=== PATIENT | female | born 1935 | race Caucasian/White ===

== ENCOUNTER 2019-02-08 16:04 | Emergency (ER) | payer MEDICARE, BC ==
[~2019-02-08] VITALS: Ht 167.6 cm; Wt 86.0 kg
[~2019-02-08 16:04] MED LIST: CLONIDINE0.1 MG PO; DIOVAN160 MG OR; DIOVAN320 MG OR; FUROSEMIDE20 MG PO; KLOR-CON20 MEQ OR; LIBRAX1 CAP OR; METOPROL TAR100 MG OR; METOPROLOL25 MG OR; NEXIUM40 M1 OR; NORVASC10 MG OR; POT CHLORIDE20 ME3 OR; PRAVASTATIN80 MG OR; PRILOSEC20 MG OR; SYNTHROID50 MCG OR; TEKTURNA300 MG OR
[2019-02-08 16:27] LABS: GFR 60 ML/MIN (>=60 (CALC)); GFR FOR AFR.AMER. > 60 ML/MIN (>=60 (CALC))
[2019-02-08 16:28] LABS: HEMATOCRIT 40.6 % (37.0-47.0); HEMOGLOBIN 13.3 g/dl (12.0-16.0); IMMATURE GRANULOCYTES 0.2 % (0.0-5.0); MEAN CELL VOLUME 90.6 fL CALC (80.0-100.0); MEAN CORPUSCULAR HGB 29.7 pG CALC (26.0-32.0); MEAN CORPUSCULAR HGB CONC 32.8 g/L CALC (32.0-36.0); NEUT# 2.52 thou/uL (2.00-7.15); RED BLOOD COUNT 4.48 mill/uL (4.20-5.60); RED CELL DISTRI WIDTH 12.9 % (11.5-15.5)
[2019-02-08 16:42] LABS: ALBUMIN 4.5 g/dL (3.2-5.0); ALKALINE PHOSPHATASE 50 u/l (38-126); ANION GAP 15 (6-22 (CALC)); BILIRUBIN, TOTAL 1.4 mg/dL (0.0-1.4); BUN 16 mg/dL (8-23); BUN/CREATININE RATIO 20 (12-20 (CALC)); CARBON DIOXIDE 24 mmol/l (22-30); CHLORIDE 103 mmol/l (95-108); CREATININE 0.8 mg/dL (0.5-1.0); GFR > 60 ML/MIN (>=60 (CALC)); GFR FOR AFR.AMER. > 60 ML/MIN (>=60 (CALC)); LIPASE 115 u/l (23-300); POTASSIUM 4.3 mmol/l (3.5-5.1); SGOT/AST 28 u/l (9-36); SODIUM 138 mmol/l (137-146); TOTAL PROTEIN 7.1 g/dL (6.3-8.2)
[2019-02-08 16:48] LABS: INTERNATIONAL NORMALIZED RATIO 1.1 RATIO (0.7-1.3); PROTHROMBIN TIME 11.9 SECONDS (9.0-12.5)
[2019-02-08 17:25] LABS: URINE BILIRUBIN - DIPSTICK NEGATIVE (NEGATIVE); URINE BLOOD DIPSTICK NEGATIVE (NEGATIVE); URINE COLOR YELLOW; URINE GLUCOSE - DIPSTICK NEGATIVE (NEGATIVE); URINE KETONE NEGATIVE (NEGATIVE); URINE LEUK ESTERASE SMALL (NEGATIVE); URINE NITRITE - DIPSTICK NEGATIVE (Negative); URINE PROTEIN - DIPSTICK NEGATIVE (NEG-TRACE); URINE UROBILINOGEN - DIPSTICK 0.2 E.U./dL (0.2)
[2019-02-08 17:44] LABS: URINE RBC 0-2 RBC/hpf (0-5); URINE SQUAMOUS EPITHELIAL CELL FEW EPI/hpf (0-FEW)
[2019-02-08] MEDS ORDERED: COUMADIN5 MG PO (18:12)
[2019-02-08] MEDS ORDERED: PRAVASTATIN80 MG PO (18:12)
[2019-02-08] MEDS ORDERED: LABETALOL200 MG PO (18:12)
[2019-02-08] MEDS ORDERED: SPIRONOLACTONE25 MG PO (18:13)
[2019-02-08] MEDS ORDERED: TRAMADOL HYDROC50 MG PO (18:17)
[2019-02-08] MEDS ORDERED: MUPIROCIN21 TOP (18:25)
[2019-02-08 18:29] VITALS: BP 140/81
== END 2019-02-08 19:15 | disposition home or self-care (01) ==
LOC: ED 16:04
PROVIDERS: Family Medicine
DX: S00.12XA Contusion of left eyelid and periocular area, initial encounter (principal); S00.11XA Contusion of right eyelid and periocular area, initial encounter; S00.33XA Contusion of nose, initial encounter; S80.212A Abrasion, left knee, initial encounter; S20.212A Contusion of left front wall of thorax, initial encounter; M54.6 Pain in thoracic spine; M54.5 Low back pain; I10 Essential (primary) hypertension; W01.0XXA Fall on same level from slipping, tripping and stumbling without subsequent striking against object, initial encounter; Y92.009 Unspecified place in unspecified non-institutional (private) residence as the place of occurrence of the external cause; Z86.718 Personal history of other venous thrombosis and embolism; Z79.01 Long term (current) use of anticoagulants; R06.02 Shortness of breath
CPT/HCPCS: Q9967

== ENCOUNTER 2019-10-11 00:55 | Emergency (ER) | payer MEDICARE, BC ==
[~2019-10-11] VITALS: Ht 167.6 cm; Wt 50.0 kg
[~2019-10-11 00:55] MED LIST changes: +COUMADIN5 MG PO; +LABETALOL200 MG PO; +MUPIROCIN21 TOP; +PRAVASTATIN80 MG PO; +SPIRONOLACTONE25 MG PO; +TRAMADOL HYDROC50 MG PO
[2019-10-11 01:25] LABS: HEMOGLOBIN 12.8 g/dl (12.0-16.0); IMMATURE GRANULOCYTES 0.3 % (0.0-5.0); MEAN CELL VOLUME 91.3 fL CALC (80.0-100.0); MEAN CORPUSCULAR HGB 30.8 pG CALC (26.0-32.0); MEAN CORPUSCULAR HGB CONC 33.7 g/L CALC (32.0-36.0); NEUT# 4.36 thou/uL (2.00-7.15); RED BLOOD COUNT 4.16 mill/uL (4.20-5.60); RED CELL DISTRI WIDTH 12.7 % (11.5-15.5)
[2019-10-11 01:36] LABS: ALBUMIN 4.2 g/dL (3.2-5.0); ALKALINE PHOSPHATASE 58 u/l (38-126); ANION GAP 14 (6-22 (CALC)); BUN 21 mg/dL (8-23); BUN/CREATININE RATIO 29 (12-20 (CALC)); CARBON DIOXIDE 26 mmol/l (22-30); CHLORIDE 99 mmol/l (95-108); CREATININE 0.7 mg/dL (0.5-1.0); GFR > 60 ML/MIN (>=60 (CALC)); GFR FOR AFR.AMER. > 60 ML/MIN (>=60 (CALC)); POTASSIUM 4.3 mmol/l (3.5-5.1); SGOT/AST 25 u/l (9-36); SODIUM 135 mmol/l (137-146)
[2019-10-11 01:41] LABS: BILIRUBIN, TOTAL 0.8 mg/dL (0.0-1.4)
[2019-10-11 01:47] LABS: MYOGLOBIN 102 ng/mL (0 - 62)
[2019-10-11 02:19] LABS: URINE BILIRUBIN - DIPSTICK NEGATIVE (NEGATIVE); URINE BLOOD DIPSTICK NEGATIVE (NEGATIVE); URINE COLOR YELLOW; URINE GLUCOSE - DIPSTICK NEGATIVE (NEGATIVE); URINE KETONE NEGATIVE (NEGATIVE); URINE NITRITE - DIPSTICK NEGATIVE (Negative); URINE PH 6.5 (4.5-8.0); URINE PROTEIN - DIPSTICK NEGATIVE (NEG-TRACE); URINE SPECIFIC GRAVITY <=1.005; URINE UROBILINOGEN - DIPSTICK 0.2 E.U./dL (0.2)
[2019-10-11 02:20] LABS: URINE LEUK ESTERASE MODERATE (NEGATIVE)
[2019-10-11 02:27] LABS: URINE RBC 0-2 RBC/hpf (0-5)
[2019-10-11] MEDS ORDERED: ONDANSETRON HCL4 MG PO (02:44)
[2019-10-11 03:00] VITALS: BP 154/77
[2019-10-11] MEDS ORDERED: ALDACTONE25 MG PO (03:32)
[2019-10-11] MEDS ORDERED: ELIQUIS5 MG PO (03:32)
== END 2019-10-11 03:14 | disposition home or self-care (01) ==
LOC: ED 00:55
PROVIDERS: Family Medicine
DX: R11.0 Nausea (principal); R26.89 Other abnormalities of gait and mobility; I10 Essential (primary) hypertension; Z86.718 Personal history of other venous thrombosis and embolism; Z79.01 Long term (current) use of anticoagulants

== ENCOUNTER 2019-11-02 | Emergency (ER) | payer MEDICARE, BC ==
[~2019-11-02] MED LIST changes: +ALDACTONE25 MG PO; +ELIQUIS5 MG PO; +ONDANSETRON HCL4 MG PO
[2019-11-02 14:08] LABS: HEMATOCRIT 41.8 % (37.0-47.0); HEMOGLOBIN 13.8 g/dl (12.0-16.0); IMMATURE GRANULOCYTES 0.4 % (0.0-5.0); MEAN CELL VOLUME 90.5 fL CALC (80.0-100.0); MEAN CORPUSCULAR HGB 29.9 pG CALC (26.0-32.0); NEUT# 3.09 thou/uL (2.00-7.15); RED BLOOD COUNT 4.62 mill/uL (4.20-5.60); RED CELL DISTRI WIDTH 12.5 % (11.5-15.5)
[2019-11-02 14:21] LABS: ALBUMIN 4.5 g/dL (3.2-5.0); ALKALINE PHOSPHATASE 59 u/l (38-126); ANION GAP 17 (6-22 (CALC)); BUN 14 mg/dL (8-23); BUN/CREATININE RATIO 19 (12-20 (CALC)); CARBON DIOXIDE 20 mmol/l (22-30); CHLORIDE 102 mmol/l (95-108); CREATININE 0.7 mg/dL (0.5-1.0); GFR > 60 ML/MIN (>=60 (CALC)); GFR FOR AFR.AMER. > 60 ML/MIN (>=60 (CALC)); POTASSIUM 3.9 mmol/l (3.5-5.1); SGOT/AST 23 u/l (9-36); SODIUM 135 mmol/l (137-146); TOTAL PROTEIN 7.6 g/dL (6.3-8.2)
== END 2019-11-02 17:13 | disposition home or self-care (01) ==
PROVIDERS: Family Medicine
DX: R53.83 Other fatigue (principal); I10 Essential (primary) hypertension

== ENCOUNTER 2023-01-14 11:17 | Observation (INO) | payer MEDICARE, BC ==
[~2023-01-14] VITALS: Ht 154.9 cm; Wt 76.2 kg
[2023-01-14] VITALS (26 sets, daily range): BP systolic 139–186; BP diastolic 74–98
[~2023-01-14 11:17] MED LIST changes: +LABETALOL HYDR200 MG PO; -LABETALOL200 MG PO
[2023-01-14 12:01] LABS: BASO% 0.6 % (0-3); IMMATURE GRANULOCYTES 0.2 % (0.0-5.0); LYMPH% 26.3 % (15-41); MEAN CELL VOLUME 91.1 fL CALC (80.0-100.0); MEAN CORPUSCULAR HGB 29.2 pG CALC (26.0-32.0); MONO% 7.5 % (2-13); NEUT# 3.11 thou/uL (2.00-7.15); NEUT% 61.4 % (42-76); RED BLOOD COUNT 3.94 mill/uL (4.20-5.60); RED CELL DISTRI WIDTH 12.5 % (11.5-15.5)
[2023-01-14 12:06] LABS: HEMATOCRIT 35.9 % (37.0-47.0); HEMOGLOBIN 11.5 g/dl (12.0-16.0)
[2023-01-14 12:39] LABS: INTERNATIONAL NORMALIZED RATIO 1.1 RATIO (0.7-1.3); PROTHROMBIN TIME 10.6 SECONDS (9.0-12.5)
[2023-01-14 12:42] LABS: ALBUMIN 3.7 g/dL (3.2-5.0); ALKALINE PHOSPHATASE 68 u/l (38-126); BUN 15 mg/dL (8-23); BUN/CREATININE RATIO 26 (12-20 (CALC)); CHLORIDE 113 mmol/l (95-108); CREATININE 0.6 mg/dL (0.5-1.0); GFR FOR AFR.AMER. > 60 ML/MIN (>=60 (CALC)); GFR OTHER RACES > 60 ML/MIN (>=60 (CALC)); SGOT/AST 20 u/l (9-36); SODIUM 141 mmol/l (137-146); TOTAL PROTEIN 6.1 g/dL (6.3-8.2)
[2023-01-14 12:45] LABS: ANION GAP 11 (6-22 (CALC)); CARBON DIOXIDE 20 mmol/l (22-30)
[2023-01-14 12:54] LABS: URINE BILIRUBIN - DIPSTICK NEGATIVE (NEGATIVE); URINE BLOOD DIPSTICK NEGATIVE (NEGATIVE); URINE COLOR YELLOW; URINE GLUCOSE - DIPSTICK NEGATIVE (NEGATIVE); URINE KETONE TRACE mg/dL (NEGATIVE); URINE PH 7.5 (4.5-8.0); URINE PROTEIN - DIPSTICK NEGATIVE (NEG-TRACE); URINE SPECIFIC GRAVITY 1.015; URINE UROBILINOGEN - DIPSTICK 0.2 E.U./dL (0.2)
[2023-01-14 12:58] LABS: URINE LEUK ESTERASE MODERATE (NEGATIVE); URINE NITRITE - DIPSTICK NEGATIVE (Negative)
[2023-01-14 12:59] LABS: URINE BACTERIA FEW hpf; URINE EPITHELIAL CELLS FEW EPI/hpf (0-FEW)
[2023-01-14] MEDS ORDERED: PROCARDIA XL30 MG PO (16:34)
[2023-01-14] MEDS ORDERED: OMEPRAZOLE DR40 MG PO (16:35)
[2023-01-14] MEDS ORDERED: GABAPENTIN100 MG PO (16:36)
[2023-01-14] MEDS ORDERED: LOSARTAN POTAS100 MG PO (17:34)
[2023-01-14] MEDS ORDERED: REMERON30 MG PO (17:35)
[2023-01-15 03:58] VITALS: BP 142/78
[2023-01-15 06:01] LABS: CHOLESTEROL HDL RATIO 2.8 (<4.4 (CALC)); MAGNESIUM 2.1 mg/dL (1.6-2.3)
[2023-01-15 07:06] VITALS: BP 120/66
[2023-01-15 07:24] LABS: ANION GAP 14 (6-22 (CALC)); BUN 18 mg/dL (8-23); BUN/CREATININE RATIO 29 (12-20 (CALC)); CARBON DIOXIDE 22 mmol/l (22-30); CHLORIDE 107 mmol/l (95-108); CREATININE 0.6 mg/dL (0.5-1.0); GFR FOR AFR.AMER. > 60 ML/MIN (>=60 (CALC)); GFR OTHER RACES > 60 ML/MIN (>=60 (CALC)); SODIUM 139 mmol/l (137-146)
[2023-01-15 07:25] LABS: POTASSIUM 4.3 mmol/l (3.5-5.1)
[2023-01-15 07:54] VITALS: BP 172/86
[2023-01-15 11:37] VITALS: BP 162/81
[2023-01-15] MEDS ORDERED: MEDDOSEPAK PO (11:41)
[2023-01-15] MEDS ORDERED: KEFLEX500 MG PO (11:42)
== END 2023-01-15 12:42 | disposition home or self-care (01) ==
LOC: ED 11:17 → ED-I 13:00 → ED 14:30 → MS2 14:31
PROVIDERS: Nurse Practitioner; ADMIT Internal Medicine; ATTEND Internal Medicine
DX: R07.9 Chest pain, unspecified (principal); J44.1 Chronic obstructive pulmonary disease with (acute) exacerbation; N39.0 Urinary tract infection, site not specified; I10 Essential (primary) hypertension; E03.9 Hypothyroidism, unspecified; F32.A Depression, unspecified; Z86.718 Personal history of other venous thrombosis and embolism

== ENCOUNTER 2023-04-04 10:37 | Emergency (ER) | payer MEDICARE, BC ==
[~2023-04-04] VITALS: Ht 157.5 cm; Wt 81.6 kg
[2023-04-04] VITALS (7 sets, daily range): BP systolic 124–146; BP diastolic 66–82
[~2023-04-04 10:37] MED LIST changes: +GABAPENTIN100 MG PO; +KEFLEX500 MG PO; +LOSARTAN POTAS100 MG PO; +MEDDOSEPAK PO; +OMEPRAZOLE DR40 MG PO; +PROCARDIA XL30 MG PO; +REMERON30 MG PO
[2023-04-04 11:22] LABS: BASO% 0.4 % (0-3); EOS% 3.4 % (0-8); HEMATOCRIT 41.4 % (37.0-47.0); IMMATURE GRANULOCYTES 0.2 % (0.0-5.0); LYMPH% 27.2 % (15-41); MEAN CELL VOLUME 91.2 fL CALC (80.0-100.0); MEAN CORPUSCULAR HGB 29.7 pG CALC (26.0-32.0); MEAN CORPUSCULAR HGB CONC 32.6 g/dL CAL (32.0-36.0); MONO% 8.7 % (2-13); NEUT# 2.99 thou/uL (2.00-7.15); NEUT% 60.1 % (42-76); RED BLOOD COUNT 4.54 mill/uL (4.20-5.60)
[2023-04-04 11:26] LABS: HEMOGLOBIN 13.5 g/dl (12.0-16.0)
[2023-04-04 11:45] LABS: ALBUMIN 4.8 g/dL (3.2-5.0); ALKALINE PHOSPHATASE 70 u/l (38-126); ANION GAP 16 (6-22 (CALC)); BILIRUBIN, TOTAL 1.3 mg/dL (0.02-1.3); BUN 11 mg/dL (8-23); BUN/CREATININE RATIO 11 (12-20 (CALC)); CARBON DIOXIDE 23 mmol/l (22-30); CHLORIDE 108 mmol/l (95-108); GFR FOR AFR.AMER. > 60 ML/MIN (>=60 (CALC)); GFR OTHER RACES 52 ML/MIN (>=60 (CALC)); POTASSIUM 3.5 mmol/l (3.5-5.1); SGOT/AST 21 u/l (9-36); SODIUM 143 mmol/l (137-146); TOTAL PROTEIN 7.1 g/dL (6.3-8.2)
== END 2023-04-04 12:54 | disposition home or self-care (01) ==
LOC: ED 10:37
PROVIDERS: Family Medicine
DX: R51.9 Headache, unspecified (principal); I10 Essential (primary) hypertension; Z86.718 Personal history of other venous thrombosis and embolism; Z20.822 Contact with and (suspected) exposure to COVID-19; E03.9 Hypothyroidism, unspecified; M79.10 Myalgia, unspecified site; E78.49 Other hyperlipidemia; I25.119 Atherosclerotic heart disease of native coronary artery with unspecified angina pectoris

== ENCOUNTER 2023-11-11 14:59 | Emergency (ER) | payer MEDICARE ==
[~2023-11-11] VITALS: Ht 152.4 cm; Wt 68.0 kg
[2023-11-11] VITALS (20 sets, daily range): BP systolic 137–181; BP diastolic 77–111
[~2023-11-11 14:59] MED LIST changes: +B-121000 MC1 PO
[2023-11-11] MEDS ORDERED: KLOR-CON M1010 MEQ PO (15:30)
[2023-11-11 15:44] LABS: BASO% 0.5 % (0-3); EOS% 1.1 % (0-8); HEMOGLOBIN 12.8 g/dl (12.0-16.0); IMMATURE GRANULOCYTES 0.2 % (0.0-5.0); LYMPH% 21.7 % (15-41); MEAN CELL VOLUME 92.8 fL CALC (80.0-100.0); MEAN CORPUSCULAR HGB 29.7 pG CALC (26.0-32.0); MONO% 7.4 % (2-13); NEUT# 3.92 thou/uL (2.00-7.15); NEUT% 69.1 % (42-76); RED BLOOD COUNT 4.31 mill/uL (4.20-5.60); RED CELL DISTRI WIDTH 12.4 % (11.5-15.5)
[2023-11-11 15:51] LABS: ALKALINE PHOSPHATASE 69 u/l (38-126); ANION GAP 10 (6-22 (CALC)); BILIRUBIN, TOTAL 0.8 mg/dL (0.02-1.3); BUN 14 mg/dL (8-23); BUN/CREATININE RATIO 20 (12-20 (CALC)); CARBON DIOXIDE 25 mmol/l (22-30); CHLORIDE 108 mmol/l (95-108); CREATININE 0.7 mg/dL (0.5-1.0); GFR FOR AFR.AMER. > 60 ML/MIN (>=60 (CALC)); GFR OTHER RACES > 60 ML/MIN (>=60 (CALC)); POTASSIUM 3.8 mmol/l (3.5-5.1); SGOT/AST 29 u/l (9-36); SODIUM 140 mmol/l (137-146)
[2023-11-11 15:53] LABS: ALBUMIN 4.1 g/dL (3.2-5.0); TOTAL PROTEIN 6.7 g/dL (6.3-8.2)
[2023-11-11 17:06] LABS: URINE BILIRUBIN - DIPSTICK Negative (NEGATIVE); URINE BLOOD DIPSTICK Negative (NEGATIVE); URINE GLUCOSE - DIPSTICK Negative (NEGATIVE); URINE KETONE Negative (NEGATIVE); URINE LEUK ESTERASE Negative (NEGATIVE); URINE NITRITE - DIPSTICK Negative (Negative); URINE PH 8.5 (4.5-8.0); URINE PROTEIN - DIPSTICK Negative (NEG-TRACE); URINE SPECIFIC GRAVITY 1.015; URINE UROBILINOGEN - DIPSTICK 0.2 E.U./dL (0.2)
[2023-11-11 17:07] LABS: URINE COLOR Yellow
== END 2023-11-11 20:16 | disposition left against medical advice (07) ==
LOC: ED 14:59
PROVIDERS: Family Medicine
DX: R07.9 Chest pain, unspecified (principal); I10 Essential (primary) hypertension; J44.9 Chronic obstructive pulmonary disease, unspecified; E03.9 Hypothyroidism, unspecified; F32.A Depression, unspecified; K21.9 Gastro-esophageal reflux disease without esophagitis; Z53.29 Procedure and treatment not carried out because of patient's decision for other reasons; Z86.718 Personal history of other venous thrombosis and embolism; Z86.711 Personal history of pulmonary embolism; Z20.822 Contact with and (suspected) exposure to COVID-19
CPT/HCPCS: Q9967

== ENCOUNTER 2023-11-12 14:14 | Observation (INO) | payer MEDICARE ==
[~2023-11-12] VITALS: Ht 152.4 cm; Wt 71.4 kg
[2023-11-12] VITALS (17 sets, daily range): BP systolic 114–154; BP diastolic 61–85
[~2023-11-12 14:14] MED LIST changes: +KLOR-CON M1010 MEQ PO
[2023-11-12 14:36] LABS: BASO% 0.6 % (0-3); HEMATOCRIT 40.7 % (37.0-47.0); HEMOGLOBIN 12.9 g/dl (12.0-16.0); IMMATURE GRANULOCYTES 0.2 % (0.0-5.0); LYMPH% 28.9 % (15-41); MEAN CELL VOLUME 94.4 fL CALC (80.0-100.0); MEAN CORPUSCULAR HGB 29.9 pG CALC (26.0-32.0); MEAN CORPUSCULAR HGB CONC 31.7 g/dL CAL (32.0-36.0); MONO% 7.6 % (2-13); NEUT# 3.26 thou/uL (2.00-7.15); NEUT% 60.7 % (42-76); RED BLOOD COUNT 4.31 mill/uL (4.20-5.60); RED CELL DISTRI WIDTH 12.6 % (11.5-15.5)
[2023-11-12 15:07] LABS: ALBUMIN 4.2 g/dL (3.2-5.0); ALKALINE PHOSPHATASE 57 u/l (38-126); ANION GAP 9 (6-22 (CALC)); BUN 15 mg/dL (8-23); BUN/CREATININE RATIO 16 (12-20 (CALC)); CARBON DIOXIDE 26 mmol/l (22-30); CHLORIDE 109 mmol/l (95-108); CREATININE 0.9 mg/dL (0.5-1.0); GFR FOR AFR.AMER. > 60 ML/MIN (>=60 (CALC)); GFR OTHER RACES 59 ML/MIN (>=60 (CALC)); MAGNESIUM 2.1 mg/dL (1.6-2.3); POTASSIUM 3.5 mmol/l (3.5-5.1); SGOT/AST 29 u/l (9-36); SODIUM 140 mmol/l (137-146); TOTAL PROTEIN 6.8 g/dL (6.3-8.2)
[2023-11-12 16:01] LABS: URINE BLOOD DIPSTICK Negative (NEGATIVE); URINE GLUCOSE - DIPSTICK Negative (NEGATIVE); URINE KETONE Trace mg/dL (NEGATIVE); URINE LEUK ESTERASE Trace (NEGATIVE); URINE NITRITE - DIPSTICK Negative (Negative); URINE PH 5.5 (4.5-8.0); URINE PROTEIN - DIPSTICK 30 mg/dL (NEG-TRACE); URINE SPECIFIC GRAVITY 1.025; URINE UROBILINOGEN - DIPSTICK 0.2 E.U./dL (0.2)
[2023-11-12 16:06] LABS: URINE COLOR Dark yellow
[2023-11-12 16:08] LABS: URINE RBC 0-2 RBC/hpf (0-5); URINE SQUAMOUS EPITHELIAL CELL MODERATE EPI/hpf (0-FEW)
[2023-11-13] VITALS (16 sets, daily range): BP systolic 133–201; BP diastolic 75–105
[2023-11-13 06:09] LABS: BASO% 0.5 % (0-3); EOS% 4.3 % (0-8); HEMATOCRIT 35.6 % (37.0-47.0); HEMOGLOBIN 11.5 g/dl (12.0-16.0); LYMPH% 39.9 % (15-41); MEAN CELL VOLUME 94.2 fL CALC (80.0-100.0); MEAN CORPUSCULAR HGB 30.4 pG CALC (26.0-32.0); MEAN CORPUSCULAR HGB CONC 32.3 g/dL CAL (32.0-36.0); MONO% 10.5 % (2-13); NEUT# 1.88 thou/uL (2.00-7.15); NEUT% 44.8 % (42-76); RED BLOOD COUNT 3.78 mill/uL (4.20-5.60); RED CELL DISTRI WIDTH 12.5 % (11.5-15.5)
[2023-11-13 06:32] LABS: ALKALINE PHOSPHATASE 53 u/l (38-126); ANION GAP 6 (6-22 (CALC)); BILIRUBIN, TOTAL 0.7 mg/dL (0.02-1.3); BUN 13 mg/dL (8-23); BUN/CREATININE RATIO 19 (12-20 (CALC)); CALCULATED LDLCHOLESTEROL 61 mg/dL (62-129 (CALC)); CARBON DIOXIDE 25 mmol/l (22-30); CHLORIDE 111 mmol/l (95-108); CHOLESTEROL HDL RATIO 2.6 (<4.4 (CALC)); CREATININE 0.7 mg/dL (0.5-1.0); GFR FOR AFR.AMER. > 60 ML/MIN (>=60 (CALC)); GFR OTHER RACES > 60 ML/MIN (>=60 (CALC)); HDL CHOLESTEROL 50 mg/dL (39.0-59.0); MAGNESIUM 1.9 mg/dL (1.6-2.3); POTASSIUM 3.8 mmol/l (3.5-5.1); SGOT/AST 23 u/l (9-36); SODIUM 139 mmol/l (137-146); TOTAL TRIGLYCERIDES 100 mg/dl (0-149); VLDL CHOLESTROL 20 mg/dl (0-48 (CALC))
[2023-11-13 06:40] LABS: ALBUMIN 3.1 g/dL (3.2-5.0); TOTAL CHOLESTEROL 131 mg/dl (0-199); TOTAL PROTEIN 5.2 g/dL (6.3-8.2)
[2023-11-14] VITALS (7 sets, daily range): BP systolic 123–158; BP diastolic 77–90
== END 2023-11-14 14:27 | disposition home or self-care (01) ==
LOC: ED 14:14 → ED-I 15:55 → ED 16:25 → MS2 16:26
PROVIDERS: Nurse Practitioner; ADMIT Student in an Organized Health Care Education/Training Program; ATTEND Student in an Organized Health Care Education/Training Program
DX: R55 Syncope and collapse (principal); I10 Essential (primary) hypertension; J44.9 Chronic obstructive pulmonary disease, unspecified; E03.9 Hypothyroidism, unspecified; F32.A Depression, unspecified; K21.9 Gastro-esophageal reflux disease without esophagitis; Z86.718 Personal history of other venous thrombosis and embolism; Z86.711 Personal history of pulmonary embolism

== ENCOUNTER 2024-10-24 13:33 | Emergency (ER) | payer MEDICARE ==
[~2024-10-24] VITALS: Ht 152.4 cm; Wt 54.4 kg
[2024-10-24] VITALS (13 sets, daily range): BP systolic 109–156; BP diastolic 53–76
[~2024-10-24 13:33] MED LIST changes: +TRAMADOL HCL50 MG PO
[2024-10-24] MEDS ORDERED: ACETAMINOPHEN 1,000 MG/100 ML VIAL IV ONE (13:40)
[2024-10-24] MEDS ORDERED: SODIUM CHLORIDE 0.9% 1,000 ML IV ONE (13:45)
[2024-10-24 14:23] LABS: BASO% 0.5 % (0-3); EOS% 3.3 % (0-8); HEMATOCRIT 36.6 % (37.0-47.0); HEMOGLOBIN 11.7 g/dl (12.0-16.0); IMMATURE GRANULOCYTES 0.2 % (0.0-5.0); LYMPH% 20.6 % (15-41); MEAN CELL VOLUME 94.8 fL CALC (80.0-100.0); MEAN CORPUSCULAR HGB 30.3 pG CALC (26.0-32.0); MONO% 8.8 % (2-13); NEUT# 3.78 thou/uL (2.00-7.15); NEUT% 66.6 % (42-76); RED BLOOD COUNT 3.86 mill/uL (4.20-5.60); RED CELL DISTRI WIDTH 12.6 % (11.5-15.5)
[2024-10-24 14:31] LABS: ALBUMIN 3.9 g/dL (3.2-5.0); BILIRUBIN, TOTAL 0.8 mg/dL (0.02-1.3); CREATININE 0.7 mg/dL (0.5-1.0); POTASSIUM 4.1 mmol/l (3.5-5.1); TOTAL PROTEIN 6.1 g/dL (6.3-8.2)
[2024-10-24 15:09] LABS: URINE BILIRUBIN - DIPSTICK Negative (NEGATIVE); URINE BLOOD DIPSTICK Negative (NEGATIVE); URINE GLUCOSE - DIPSTICK Negative (NEGATIVE); URINE KETONE Negative (NEGATIVE); URINE NITRITE - DIPSTICK Negative (Negative); URINE PH 8.5 (4.5-8.0); URINE PROTEIN - DIPSTICK Negative (NEG-TRACE)
[2024-10-24 15:11] LABS: URINE COLOR Yellow; URINE LEUK ESTERASE Small (NEGATIVE)
[2024-10-24 15:15] LABS: URINE RBC 0-2 RBC/hpf (0-5)
[2024-10-24 15:16] LABS: URINE HYALINE CAST MODERATE lpf (NONE-RARE)
[2024-10-24] MEDS ORDERED: MACROBID100 M1 PO (16:44)
== END 2024-10-24 17:25 | disposition home or self-care (01) ==
LOC: ED 13:33
PROVIDERS: Nurse Practitioner Family
DX: R42 Dizziness and giddiness (principal); R53.1 Weakness; R07.9 Chest pain, unspecified; N39.0 Urinary tract infection, site not specified; I10 Essential (primary) hypertension; E03.9 Hypothyroidism, unspecified; K21.9 Gastro-esophageal reflux disease without esophagitis; D64.9 Anemia, unspecified; Z86.711 Personal history of pulmonary embolism; Z86.718 Personal history of other venous thrombosis and embolism
CPT/HCPCS: J0131; J0696

== ENCOUNTER 2024-12-10 12:54 | Observation (INO) | payer MEDICARE ==
[2024-12-10] VITALS (31 sets, daily range): BP systolic 122–188; BP diastolic 72–107
[~2024-12-10] VITALS: Ht 152.4 cm; Wt 74.0 kg
[~2024-12-10 12:54] MED LIST changes: +MACROBID100 M1 PO
[2024-12-10] MEDS ORDERED: ASPIRIN 81 MG/TAB PO ONE (13:15)
[2024-12-10] MEDS ORDERED: NITROGLYCERIN 0.4 MG/TAB SL ONE (13:20)
[2024-12-10 13:29] LABS: URINE BILIRUBIN - DIPSTICK Negative (NEGATIVE); URINE BLOOD DIPSTICK Negative (NEGATIVE); URINE GLUCOSE - DIPSTICK Negative (NEGATIVE); URINE KETONE Negative (NEGATIVE); URINE LEUK ESTERASE Trace (NEGATIVE); URINE NITRITE - DIPSTICK Negative (Negative); URINE PH 7.5 (4.5-8.0); URINE PROTEIN - DIPSTICK Negative (NEG-TRACE); URINE SPECIFIC GRAVITY 1.015; URINE UROBILINOGEN - DIPSTICK 0.2 E.U./dL (0.2)
[2024-12-10 13:31] LABS: URINE COLOR Yellow
[2024-12-10 13:33] LABS: BASO% 0.6 % (0-3); EOS% 4.8 % (0-8); HEMOGLOBIN 14.1 g/dl (12.0-16.0); IMMATURE GRANULOCYTES 0.1 % (0.0-5.0); LYMPH% 33.2 % (15-41); MEAN CELL VOLUME 95.2 fL CALC (80.0-100.0); MEAN CORPUSCULAR HGB 30.5 pG CALC (26.0-32.0); NEUT# 3.65 thou/uL (2.00-7.15); NEUT% 53.3 % (42-76); RED BLOOD COUNT 4.62 mill/uL (4.20-5.60); RED CELL DISTRI WIDTH 12.9 % (11.5-15.5)
[2024-12-10 13:59] LABS: ALBUMIN 5.1 g/dL (3.2-5.0); ALKALINE PHOSPHATASE 61 u/l (38-126); ANION GAP 15 (6-22 (CALC)); BUN 10 mg/dL (8-23); BUN/CREATININE RATIO 15 (12-20 (CALC)); CARBON DIOXIDE 27 mmol/l (22-30); CHLORIDE 103 mmol/l (95-108); CREATININE 0.7 mg/dL (0.5-1.0); ESTIMATED GFR 83 ML/MIN (>=90 (CALC)); POTASSIUM 4.3 mmol/l (3.5-5.1); SGOT/AST 35 u/l (9-36); SODIUM 140 mmol/l (137-146); TOTAL PROTEIN 8.1 g/dL (6.3-8.2)
[2024-12-10 14:10] LABS: BILIRUBIN, TOTAL 1.2 mg/dL (0.02-1.3)
[2024-12-10] MEDS ORDERED: Zaleplon 5 MG/CAP PO PRN (16:40)
[2024-12-10] MEDS ORDERED: ACETAMINOPHEN 325 MG/TAB PO PRN (16:40)
[2024-12-10] MEDS ORDERED: MAGNESIUM HYDROXIDE 30 ML UDC PO PRN (16:40)
[2024-12-10] MEDS ORDERED: GABAPENTIN 300 MG/CAP PO SCH (21:00)
[2024-12-10] MEDS ORDERED: APIXABAN BASE 5 MG TAB PO SCH (21:00)
[2024-12-10] MEDS ORDERED: MIRTAZAPINE 15 MG/TAB PO SCH (21:00)
[2024-12-10] MEDS ORDERED: LABETALOL HCL 100 MG/TAB PO SCH (21:00)
[2024-12-11 04:12] VITALS: BP 127/69
[2024-12-11 07:00] VITALS: BP 135/78
[2024-12-11] MEDS ORDERED: NITROGLYCERIN 0.4 MG/TAB SL PRN (08:10)
[2024-12-11 08:22] LABS: CHOLESTEROL HDL RATIO 2.5 (<4.4 (CALC))
[2024-12-11] MEDS ORDERED: PANTOPRAZOLE SODIUM Sesquihydr 40 MG/TAB PO SCH (09:00)
[2024-12-11] MEDS ORDERED: LOSARTAN Potassium 50 MG/TAB PO SCH (09:00)
[2024-12-11] MEDS ORDERED: LEVOTHYROXINE SODIUM 50 MCG/TAB PO SCH (09:00)
[2024-12-11] MEDS ORDERED: ASPIRIN 81 MG/TAB PO SCH (09:00)
[2024-12-11] MEDS ORDERED: NIFEdipine SR 30 MG/TAB PO SCH (09:00)
[2024-12-11 11:14] VITALS: BP 118/50
[2024-12-11 18:22] VITALS: BP 129/67
[2024-12-12 00:01] VITALS: BP 136/70
[2024-12-12 04:30] VITALS: BP 138/83
[2024-12-12 05:08] LABS: BASO% 0.8 % (0-3); EOS% 6.3 % (0-8); HEMATOCRIT 40.9 % (37.0-47.0); IMMATURE GRANULOCYTES 0.3 % (0.0-5.0); LYMPH% 36.3 % (15-41); MEAN CELL VOLUME 94.9 fL CALC (80.0-100.0); MEAN CORPUSCULAR HGB 30.2 pG CALC (26.0-32.0); MEAN CORPUSCULAR HGB CONC 31.8 g/dL CAL (32.0-36.0); MONO% 11.5 % (2-13); NEUT# 1.79 thou/uL (2.00-7.15); NEUT% 44.8 % (42-76); RED BLOOD COUNT 4.31 mill/uL (4.20-5.60); RED CELL DISTRI WIDTH 12.6 % (11.5-15.5)
[2024-12-12 05:17] LABS: CREATININE 0.8 mg/dL (0.5-1.0); MAGNESIUM 2.1 mg/dL (1.6-2.3); POTASSIUM 4.3 mmol/l (3.5-5.1)
[2024-12-12 05:20] LABS: ALBUMIN 3.7 g/dL (3.2-5.0); TOTAL PROTEIN 6.1 g/dL (6.3-8.2)
[2024-12-12 06:06] VITALS: BP 157/80
[2024-12-12] MEDS ORDERED: ASPIRIN ADULT L81 M2 PO (08:22)
[2024-12-12] MEDS ORDERED: NITROSTAT0.4 MG SL (08:23)
[2024-12-12 08:53] VITALS: BP 134/70
[2024-12-12] MEDS ORDERED: INFLUENZA VIRUS VACCINE FLUZONE HD 2024/25 0.5 ML INJ IM SCH (09:00)
[2024-12-12 10:36] VITALS: BP 118/65
== END 2024-12-12 11:20 | disposition home or self-care (01) ==
LOC: ED 12:54 → ED-I 16:10 → ED 17:58 → MS2 17:59
PROVIDERS: Internal Medicine; Nurse Practitioner; ADMIT Internal Medicine; ATTEND Internal Medicine
DX: R07.9 Chest pain, unspecified (principal); I10 Essential (primary) hypertension; J44.9 Chronic obstructive pulmonary disease, unspecified; I25.10 Atherosclerotic heart disease of native coronary artery without angina pectoris; I27.20 Pulmonary hypertension, unspecified; E03.9 Hypothyroidism, unspecified; F32.A Depression, unspecified; Z87.440 Personal history of urinary (tract) infections; Z86.711 Personal history of pulmonary embolism; K21.9 Gastro-esophageal reflux disease without esophagitis; Z23 Encounter for immunization; Z86.718 Personal history of other venous thrombosis and embolism; Z79.01 Long term (current) use of anticoagulants; Z91.81 History of falling
CPT/HCPCS: 90662; Q9967

== ENCOUNTER 2024-12-12 19:25 | Emergency (ER) | payer MEDICARE ==
[~2024-12-12] VITALS: Ht 152.4 cm; Wt 68.0 kg
[2024-12-12] VITALS (12 sets, daily range): BP systolic 111–147; BP diastolic 62–100
[~2024-12-12 19:25] MED LIST changes: +ASPIRIN ADULT L81 M2 PO; +NITROSTAT0.4 MG SL
[2024-12-12] MEDS ORDERED: MORPHINE SULFATE 4 MG/ML VIAL IV ONE ×2 (19:50→22:40)
[2024-12-12 20:18] LABS: BASO% 0.4 % (0-3); EOS% 2.5 % (0-8); HEMATOCRIT 38.2 % (37.0-47.0); HEMOGLOBIN 12.6 g/dl (12.0-16.0); IMMATURE GRANULOCYTES 0.1 % (0.0-5.0); LYMPH% 13.7 % (15-41); MEAN CELL VOLUME 92.3 fL CALC (80.0-100.0); MEAN CORPUSCULAR HGB 30.4 pG CALC (26.0-32.0); MONO% 11.1 % (2-13); NEUT# 5.72 thou/uL (2.00-7.15); NEUT% 72.2 % (42-76); RED BLOOD COUNT 4.14 mill/uL (4.20-5.60); RED CELL DISTRI WIDTH 12.7 % (11.5-15.5)
[2024-12-12 20:30] LABS: ALBUMIN 4.1 g/dL (3.2-5.0); ALKALINE PHOSPHATASE 47 u/l (38-126); ANION GAP 11 (6-22 (CALC)); BILIRUBIN, TOTAL 1.1 mg/dL (0.02-1.3); BUN 24 mg/dL (8-23); BUN/CREATININE RATIO 24 (12-20 (CALC)); CARBON DIOXIDE 29 mmol/l (22-30); CHLORIDE 97 mmol/l (95-108); ESTIMATED GFR 54 ML/MIN (>=90 (CALC)); POTASSIUM 4.8 mmol/l (3.5-5.1); SGOT/AST 25 u/l (9-36); SODIUM 132 mmol/l (137-146); TOTAL PROTEIN 6.6 g/dL (6.3-8.2)
[2024-12-13 00:01] VITALS: BP 136/81
[2024-12-13 00:38] LABS: URINE BILIRUBIN - DIPSTICK Negative (NEGATIVE); URINE BLOOD DIPSTICK Negative (NEGATIVE); URINE COLOR Yellow; URINE GLUCOSE - DIPSTICK Negative (NEGATIVE); URINE KETONE Negative (NEGATIVE); URINE LEUK ESTERASE Moderate (NEGATIVE); URINE NITRITE - DIPSTICK Negative (Negative); URINE PH 6.5 (4.5-8.0); URINE PROTEIN - DIPSTICK Negative (NEG-TRACE); URINE UROBILINOGEN - DIPSTICK 0.2 E.U./dL (0.2)
[2024-12-13 00:44] LABS: URINE BACTERIA FEW hpf; URINE SQUAMOUS EPITHELIAL CELL MODERATE EPI/hpf (0-FEW); URINE WBC 20-50 WBC/hpf (0-5)
[2024-12-13 01:00] VITALS: BP 136/81
--- NOTE | 2024-12-15 11:04 | NUR ---
Discharge follow up call completed 12/15/24. Patient states she is doing well and has had no chest pain since discharge. Patient was prescribed nitroglycerin but has not needed it. Patient has a follow up appointment with her PCP tomorrow. No needs or concerns are verbalized at this time.
== END 2024-12-13 01:00 | disposition home or self-care (01) ==
LOC: ED 19:25
PROVIDERS: Family Medicine
DX: R10.12 Left upper quadrant pain (principal); R55 Syncope and collapse; I10 Essential (primary) hypertension; I25.10 Atherosclerotic heart disease of native coronary artery without angina pectoris; I27.20 Pulmonary hypertension, unspecified; I27.82 Chronic pulmonary embolism; Z86.718 Personal history of other venous thrombosis and embolism; R07.9 Chest pain, unspecified
CPT/HCPCS: Q9967